=== PATIENT | male | born 1965 | race Caucasian/White ===

== ENCOUNTER 2023-10-02 23:01 | Emergency (ER) | payer SELFPAY ==
[2023-10-03] MEDS ORDERED: KETOROLAC 30 MG/ML INJ ONE (00:39)
[2023-10-03] MEDS ORDERED: ONDANSETRON 4 MG/2 ML VIAL ONE (00:39)
[2023-10-03] MEDS ORDERED: CEFTRIAXONE 1000 MG/VIAL ONE (00:39)
[2023-10-03] MEDS ORDERED: HYDROCODONE/APAP 7.5/325 MG TAB ONE (00:40)
[2023-10-03] MEDS ORDERED: Levofloxacin500mg IV 500 MG/100 ML BAG IV ONE (00:40)
[2023-10-03] MEDS ORDERED: NA CHLORIDE 0.9% 1,000 ML ONE (00:40)
[2023-10-03] MEDS ORDERED: WATER FOR INJ,STERILE 10 ML ONE (00:40)
[2023-10-03 00:43] LABS: Absolute Monocytes 0.6 K/uL (0.1-1.3); Absolute Neutrophil 6.8 K/uL (1.8-8.0); Basophils % 0.5 % (0-1.3); Eosinophils % 0.4 % (0-4.4); Hematocrit 39.8 % (39.6-49.0); Hemoglobin 13.6 g/dL (13.6-17.9); Lymphocytes % 11.5 % (15.3-44.8); MCH 30.3 pg (27.0-35.0); MCHC 34.2 g/dL (32.0-36.0); MCV 88.7 fL (80-100); MPV 7.3 fL (7.6-11.3); Monocytes % 7.1 % (3.3-12.3); Neutrophils % 80.5 % (41.7-73.7); Platelets 253 thou/uL (152-406); RBC Red Blood Cell Count 4.49 M/uL (4.33-5.43); Red Cell Distribution Width 12.7 % (12.1-15.2)
[2023-10-03 01:00] LABS: Albumin 3.6 g/dL (3.4-5.0); Anion Gap 8.3 mEq/L (5.0-15.0); Bilirubin Total 0.6 mg/dL (0.2-1.0); Globulin 3.6 g/dL (2.3-3.5); Potassium 3.3 mEq/L (3.5-5.1); Protein, Total 7.2 g/dL (6.4-8.2)
--- NOTE | 2023-10-03 02:00 | EDPHYS ---
Physician Documentation [facility] Name: Adriano Longo Age: 58 yrs Sex: Male : 1965 Arrival Date: 10/02/2023 Time: 23:01 Bed 6 Private MD: ED Physician Everett Cole HPI: 10/01 23:35 This 58 yrs old Male presents to ER via EMS with complaints of Scrotal Pain, shona Acute Onset. 23:35 The patient presents with flank pain, scrotal pain. Onset: The symptoms/episode shona began/occurred today. Modifying factors: The symptoms are alleviated by nothing, the symptoms are aggravated by nothing. Associated signs and symptoms: The patient has no apparent associated signs or symptoms. Severity of symptoms: At their worst the symptoms were moderate, in the emergency department the symptoms are unchanged. The patient has not experienced similar symptoms in the past. Historical: - Allergies: 23:18 No Known Allergies; rv - Home Meds: 23:18 None [Active]; rv - PMHx: 23:18 hernia; rv - PSHx: 23:18 None; rv - Immunization history:: Adult Immunizations up to date. - Infectious Disease History:: Denies. - Social history:: Smoking status: Patient reports the use of cigarette tobacco products, smokes one pack cigarettes per day. ROS: 23:37 Constitutional: Negative for fever, chills, and weight loss, Eyes: Negative for injury, shona pain, redness, and discharge, ENT: Negative for injury, pain, and discharge, Neck: Negative for injury, pain, and swelling, Cardiovascular: Negative for chest pain, palpitations, and edema, Respiratory: Negative for shortness of breath, cough, wheezing, and pleuritic chest pain, Back: Negative for injury and pain, MS/Extremity: Negative for injury and deformity, Skin: Negative for injury, rash, and discoloration, Neuro: Negative for headache, weakness, numbness, tingling, and seizure, Psych: Negative for depression, anxiety, suicide ideation, homicidal ideation, and hallucinations, Allergy/Immunology: Negative for hives, rash, and allergies, Endocrine: Negative for neck swelling, polydipsia, polyuria, polyphagia, and marked weight changes, Hematologic/Lymphatic: Negative for swollen nodes, abnormal bleeding, and unusual bruising, 23:37 Abdomen/GI: Positive for abdominal pain, 23:37 : Positive for testicular pain Exam: 23:37 Constitutional: This is a well developed, well nourished patient who is awake, alert, shona and in no acute distress. Head/Face: Normocephalic, atraumatic. Eyes: Pupils equal round and reactive to light, extra-ocular motions intact. Lids and lashes normal. Conjunctiva and sclera are non-icteric and not injected. Cornea within normal limits. Periorbital areas with no swelling, redness, or edema. ENT: Nares patent. No nasal discharge, no septal abnormalities noted. Tympanic membranes are normal and external auditory canals are clear. Oropharynx with no redness, swelling, or masses, exudates, or evidence of obstruction, uvula midline. Mucous membranes moist. Neck: Trachea midline, no thyromegaly or masses palpated, and no cervical lymphadenopathy. Supple, full range of motion without nuchal rigidity, or vertebral point tenderness. No Meningismus. Chest/axilla: Normal chest wall appearance and motion. Nontender with no deformity. No lesions are appreciated. Cardiovascular: Regular rate and rhythm with a normal S1 and S2. No gallops, murmurs, or rubs. Normal PMI, no JVD. No pulse deficits. Respiratory: Lungs have equal breath sounds bilaterally, clear to auscultation and percussion. No rales, rhonchi or wheezes noted. No increased work of breathing, no retractions or nasal flaring. Back: No spinal tenderness. No costovertebral tenderness. Full range of motion. Skin: Warm, dry with normal turgor. Normal color with no rashes, no lesions, and no evidence of cellulitis. MS/ Extremity: Pulses equal, no cyanosis. Neurovascular intact. Full, normal range of motion. Neuro: Awake and alert, GCS 15, oriented to person, place, time, and situation. Cranial nerves II-XII grossly intact. Motor strength 5/5 in all extremities. Sensory grossly intact. Cerebellar exam normal. Normal gait. Psych: Awake, alert, with orientation to person, place and time. Behavior, mood, and affect are within normal limits. 23:37 Abdomen/GI: Inspection: abdomen appears normal, Bowel sounds: normal, Palpation: mild abdominal tenderness, in the right lower quadrant and left lower quadrant, Liver: no appreciated palpable abnormalities, Hernia: not appreciated, 23:37 : CVA tenderness, is absent, Male external genitalia: tenderness, of the left testicle and right testicle is noted, Bladder: is normal, Vital Signs: 23:16 BP 131 / 107; Pulse 63; Resp 16; Temp 98; Pulse Ox 97% ; Weight 54.43 kg; rv 10/02 02:31 BP 158 / 84; Pulse 66; Resp 16; Temp 98; Pulse Ox 99% on R/A; rv [place] Coma Score: 10/01 23:37 Eye Response: spontaneous(4). Motor Response: obeys commands(6). Verbal Response: shona oriented(5). Total: 15. MDM: 23:19 Patient medically screened. shona 23:39 Differential diagnosis: nonspecific abdominal pain, UTI, urinary retention, shona prostatitis, urethritis, pancreatitis. Data reviewed: vital signs, nurses notes, lab test result(s), radiologic studies, CT scan, ultrasound. Consideration of Admission/Observation Escalation of care including admission/observation considered. I considered the following discharge prescriptions or medication management in the emergency department Medications were administered in the Emergency Department. See MAR. Independent interpretation of the following test(s) in the Emergency Department CT Scan: My interpretation is ct abd/pelvis. Test considered but Not performed: Ultrasound no abd usg. Historians other than the Patient: EMS: ems well informed. patient well informed. Counseling: I had a detailed discussion with the patient and/or guardian regarding the historical points, exam findings, and any diagnostic results supporting the discharge/admit diagnosis, lab results, radiology results. 10/01 23:21 Order name: CBC with Diff; Complete Time: 01:15 [facility] 10/01 23:21 Order name: CMP; Complete Time: 01:15 [facility] 10/01 23:21 Order name: Lipase; Complete Time: 01:15 [facility] 10/01 23:21 Order name: Urinalysis w/ reflexes [facility] 10/02 01:57 Order name: Urinalysis w/ reflexes [facility] 10/01 23:21 Order name: CT Abd/Pelvis - IV Contrast Only shona 10/01 23:21 Order name: US Scrotum Testicles shona 10/01 23:21 Order name: IV Saline Lock; Complete Time: 00:51 [facility] 10/01 23:21 Order name: Labs collected and sent; Complete Time: 00:51 [facility] 10/02 02:03 Order name: Jonathan. Order: please get the UA; Complete Time: 02:29 shona Administered Medications: 10/02 00:30 Drug: NS 0.9% IV 1000 ml IV at 1 bolus Per protocol; 1000 mL bolus Route: IV; Rate: 1 rv bolus; Site: left forearm; 02:30 Follow up: IV Status: Completed infusion; IV Intake: 1000ml rv 00:30 Drug: Ondansetron IVP 4 mg IVP once; over 2 minutes Route: IVP; Site: left forearm; rv 02:30 Follow up: Response: No adverse reaction rv 00:30 Drug: Ketorolac IVP 30 mg IVP once Route: IVP; Site: left forearm; rv 02:30 Follow up: Response: No adverse reaction rv 00:30 Drug: Rocephin IV 1 grams IV at per protocol once; Given slow IV push per pharmacy rv instructions Route: IV; Rate: per protocol; Site: left forearm; 02:30 Follow up: Response: No adverse reaction; IV Status: Completed infusion rv 00:30 Drug: Hydrocodone-Acetaminophen PO (7.5 mg-325 mg) 1 tabs PO once Route: PO; rv 02:30 Follow up: Response: No adverse reaction rv 00:51 Drug: levofloxacin IVPB 500 mg 100 ml IVPB once over 60 mins Volume: 100 ml; Route: rv IVPB; Infused Over: 60 mins; Site: left forearm; 02:30 Follow up: Response: No adverse reaction; IV Status: Completed infusion; IV Intake: rv 100ml 02:29 Not Given (Patient Refused): potassiumeffervescent tablet 25 meq PO once; dissolve in 4 rv ounces of water or juice 02:31 Not Given (not appropriate at the timee): morphineor iv 4 mg IVP once over 4 mins rv Disposition Summary: 10/03/23 02:00 Discharge Ordered Notes: Location: Home shona Problem: new shona Symptoms: have improved shona Condition: Stable shona Diagnosis - Epididymitis shona - Abdominal pain, unspecified shona - Hypokalemia shona Followup: shona - With: Private Physician - When: 2 - 3 days - Reason: Recheck today's complaints, Continuance of care, Re-evaluation by your physician Followup: shona - With: Abdulkadir Rivas MD - When: 2 - 3 days - Reason: Recheck today's complaints, Re-evaluation by your physician Discharge Instructions: - Discharge Summary Sheet shona - Abdominal Pain, Adult shona - Potassium Content of Foods shona - Epididymitis shona - Testicular Self-Exam shona - Hypokalemia shona Forms: - Medication Reconciliation Form shona - Antibiotic Education shona - Prescription Opioid Use shona - Patient Portal Instructions shona - Leadership Thank You Letter shona Prescriptions: - diclofenac sodium 50 mg Oral tablet, delayed release (enteric coated) - take 1 tablet ORAL route 3 times per day; 21 tablet; Refills: 0, Product [facility] Selection Permitted - levofloxacin 500 mg Oral tablet - take 1 tablet ORAL route once daily for 7 days; 7 tablet; Refills: 0, Product [facility] Selection Permitted Signatures: Dispatcher [employer] Everett Michael MD MD cha Vicente, Ronaldo RN RN rv
--- NOTE | 2023-10-03 02:00 | ER ---
Nurse's Notes [facility] Name: Adriano Longo Age: 58 yrs Sex: Male : 1965 Arrival Date: 10/02/2023 Time: 23:01 Bed 6 Private MD: Diagnosis: Epididymitis;Abdominal pain, unspecified;Hypokalemia Presentation: 10/01 23:16 Chief complaint: EMS states: bilateral groin pain, history of hernia. Coronavirus rv screen: At this time, the client does not indicate any symptoms associated with coronavirus-19. Ebola Screen: No symptoms or risks identified at this time. Initial Sepsis Screen: Does the patient meet any 2 criteria? No. Patient's initial sepsis screen is negative. Does the patient have a suspected source of infection? No. Patient's initial sepsis screen is negative. Risk Assessment: Do you want to hurt yourself or someone else? Patient reports no desire to harm self or others. Onset of symptoms was October 02, 2023. 23:16 Method Of Arrival: EMS: [facility] rv 23:16 Acuity: TATE 3 rv Triage Assessment: 23:18 General: Appears uncomfortable, Behavior is agitated, restless. Pain: Complains of pain rv in groin. Neuro: Level of Consciousness is awake, alert, obeys commands, Oriented to person, place, time, situation. Cardiovascular: Capillary refill < 3 seconds Patient's skin is warm and dry. Respiratory: Airway is patent Respiratory effort is even, unlabored. GI: No signs and/or symptoms were reported involving the gastrointestinal system. : Reports pain testicle. Historical: - Allergies: 23:18 No Known Allergies; rv - Home Meds: 23:18 None [Active]; rv - PMHx: 23:18 hernia; rv - PSHx: 23:18 None; rv - Immunization history:: Adult Immunizations up to date. - Infectious Disease History:: Denies. - Social history:: Smoking status: Patient reports the use of cigarette tobacco products, smokes one pack cigarettes per day. Screenin:19 [facility] ED Fall Risk Assessment (Adult) History of falling in the last 3 months, rv including since admission No falls in past 3 months (0 pts) Score/Fall Risk Level 0 - 2 = Low Risk Oriented to surroundings, Maintained a safe environment, Educated pt \T\ family on fall prevention, incl call for assistance when getting out of bed, Assessed \T\ reinforced patient's understanding of fall precautions. Abuse screen: Denies threats or abuse. Denies injuries from another. Nutritional screening: No deficits noted. Tuberculosis screening: No symptoms or risk factors identified. Assessment: 10/02 00:00 Reassessment: pt is refusing IV this time, will try again in 15 minutes. rv Vital Signs: 10/01 23:16 BP 131 / 107; Pulse 63; Resp 16; Temp 98; Pulse Ox 97% ; Weight 54.43 kg; rv 10/02 02:31 BP 158 / 84; Pulse 66; Resp 16; Temp 98; Pulse Ox 99% on R/A; rv [place] Coma Score: 10/01 23:37 Eye Response: spontaneous(4). Motor Response: obeys commands(6). Verbal Response: shona oriented(5). Total: 15. ED Course: 23:16 Patient arrived in ED. rv 23:18 Triage completed. rv 23:18 Arm band placed on right wrist. rv 23:19 Everett Cole MD is Attending Physician. shona 23:19 Patient has correct armband on for positive identification. Client placed on continuous rv cardiac and pulse oximetry monitoring. NIBP monitoring applied. 23:19 No provider procedures requiring assistance completed. rv 23:52 US Scrotum Testicles In Process Unspecified. EDMS 10/02 00:00 Everardo Sneed, RN is Primary Nurse. rv 00:14 Radiology exam delayed due to lab results not completed at this time. (BUN/Creatinine) eh4 IV insertion attempt and/or patient not having appropriate IV at this time. 00:27 Initial lab(s) drawn, by ks, sent to lab. Inserted saline lock: 22 gauge in left rv forearm, using aseptic technique. Blood collected. 00:51 CMP Sent. rv 00:52 Lipase Sent. rv 01:20 CT Abd/Pelvis - IV Contrast Only In Process Unspecified. EDMS 02:00 Abdulkadir Rivas MD is Referral Physician. shona 02:31 IV discontinued, intact, bleeding controlled, No redness/swelling at site. Pressure rv dressing applied. Administered Medications: 00:30 Drug: NS 0.9% IV 1000 ml IV at 1 bolus Per protocol; 1000 mL bolus Route: IV; Rate: 1 rv bolus; Site: left forearm; 02:30 Follow up: IV Status: Completed infusion; IV Intake: 1000ml rv 00:30 Drug: Ondansetron IVP 4 mg IVP once; over 2 minutes Route: IVP; Site: left forearm; rv 02:30 Follow up: Response: No adverse reaction rv 00:30 Drug: Ketorolac IVP 30 mg IVP once Route: IVP; Site: left forearm; rv 02:30 Follow up: Response: No adverse reaction rv 00:30 Drug: Rocephin IV 1 grams IV at per protocol once; Given slow IV push per pharmacy rv instructions Route: IV; Rate: per protocol; Site: left forearm; 02:30 Follow up: Response: No adverse reaction; IV Status: Completed infusion rv 00:30 Drug: Hydrocodone-Acetaminophen PO (7.5 mg-325 mg) 1 tabs PO once Route: PO; rv 02:30 Follow up: Response: No adverse reaction rv 00:51 Drug: levofloxacin IVPB 500 mg 100 ml IVPB once over 60 mins Volume: 100 ml; Route: rv IVPB; Infused Over: 60 mins; Site: left forearm; 02:30 Follow up: Response: No adverse reaction; IV Status: Completed infusion; IV Intake: rv 100ml 02:29 Not Given (Patient Refused): potassiumeffervescent tablet 25 meq PO once; dissolve in 4 rv ounces of water or juice 02:31 Not Given (not appropriate at the timee): morphineor iv 4 mg IVP once over 4 mins rv Medication: 10/01 23:19 VIS not applicable for this client. rv Intake: 10/02 02:30 IV: 100ml; Total: 100ml. rv 02:30 IV: 1000ml; Total: 1100ml. rv Outcome: 02:00 Discharge ordered by . shona 02:31 Discharged to home ambulatory, rv 02:31 Condition: good 02:31 Discharge instructions given to patient, Instructed on discharge instructions, follow up and referral plans. Demonstrated understanding of instructions, follow-up care, medications, Prescriptions given X 2, 02:32 Patient left the ED. rv Signatures: Dispatcher [employer] Everett Michael MD MD cha Vicente, Ronaldo, RN RN [facility]
[2023-10-03 02:38] LABS: Specific Gravity > 1.030 (1.005-1.030); Sqamous Epithelial <5 /HPF (None Seen); Urine Bacteria <20 /HPF (<20); Urine Bilirubin NEGATIVE (Negative); Urine Blood Negative (Negative); Urine Clarity Extremely Turbid (Clear); Urine Color Light-Yellow (Yellow); Urine Culture Reflex Order NOT NEEDED; Urine Glucose NEGATIVE (Negative); Urine Ketones NEGATIVE (Negative); Urine Microscopic Reflex YN ORDER UMIC; Urine Mucus Slight /HPF (None Seen); Urine Nitrite NEGATIVE (Negative); Urine Protein TRACE (Negative); Urine Urobilinogen Normal (Normal); Urine WBC <5 /HPF (<5); Urine Yeast (Budding) Few /HPF (None Seen); Urine pH 8.5 (5.0-7.0)
[2023-10-03 03:06] VITALS: BP 158/84; TEMP 98; O2SAT 99
--- NOTE | 2023-10-04 12:19 | RAD REPORT ---
EXAM DESCRIPTION: Scrotum Testicles RadLex: US SCROTUM CLINICAL HISTORY: PAIN. COMPARISON: None. TECHNIQUE: Real-time grayscale, color Doppler, and spectral Doppler imaging was obtained of the scr otum. FINDINGS: Right testicle/epididymis: The right testicle measures 2.1 x 3.2 x 3.8 cm. Homogeneous testicular e chotexture with normal arterial blood flow. Nonenlarged epididymis with normal blood flow. Small ep ididymal head cyst measures 0.6 cm. No varicocele. Small hydrocele. Left testicle/epididymis: The left testicle measures 2 x 2.9 x 3.4 cm. Homogeneous testicular echot exture with normal arterial blood flow. Enlarged epididymal tail with hyperemia on color Doppler imag ing. No varicocele. Medium sized hydrocele. IMPRESSION: 1. Normal flow in both testicles with no evidence of torsion. 2. Findings suggestive of left-sided epididymitis. 3. Small right-sided and medium-sized left-sided scrotal hydroceles. Electronically signed by: Magda Perez MD 10/03/2023 12:27 AM CDT Due to temporary technical issues with the PACS/Fluency reporting system, reports are being signed by the in house radiologists without review as a courtesy to insure prompt reporting. The interpreting radiologist is fully responsible for the content of the report.
--- NOTE | 2023-10-04 13:11 | RAD REPORT ---
EXAM DESCRIPTION: Abdomen Pelvis W Contrast CLINICAL HISTORY: ABD PAIN COMPARISON: None Available TECHNIQUE: Contiguous axial images of the abdomen and pelvis were obtained after the administration of intravenous contrast followed by reconstruction images.This exam was performed according to our de partmental dose-optimization program, which includes automated exposure control, adjustment of the mA and/or kV according to patient size and/or use of iterative reconstruction technique. FINDINGS: There are emphysematous changes within the right middle lobe. There is atherosclerosis. The liver, spleen, pancreas and kidneys are within normal limits. There is no hydronephrosis or renal stones. The gallbladder is unremarkable by CT criteria. Adrenal glands are within normal limits. Aor ta is of normal caliber and tapering. There is no free fluid in the abdomen or pelvis. There is no jorgito wel obstruction. There is no stranding of the mesenteric fat to suggest an inflammatory response. The appendix is within normal limits. There is no pericecal inflammation. IMPRESSION: No acute intra-abdominal abnormality. Electronically signed by: Timothy Montemayor MD 10/03/2023 01:44 AM CDT Due to temporary technical issues with the PACS/Fluency reporting system, reports are being signed by the in house radiologists without review as a courtesy to insure prompt reporting. The interpreting radiologist is fully responsible for the content of the report.
== END 2023-10-03 02:32 | disposition home or self-care (01) ==
LOC: ER 23:01
DX: N45.1 Epididymitis (principal); R10.9 Unspecified abdominal pain; E87.6 Hypokalemia; F17.210 Nicotine dependence, cigarettes, uncomplicated
CPT/HCPCS: 36415; 74177; 76870; 80053; 81001; 83690; 85025; J0696; J2405; J7030; Q9967